=== PATIENT | male | born 1970 | race Caucasian/White ===

== ENCOUNTER 2017-08-17 10:35 | Emergency (ER) | payer OTHER ==
[~2017-08-17] VITALS: Ht 182.9 cm; Wt 67.1 kg
[2017-08-17] MEDS ORDERED: SODIUM CHLORIDE FLUSH 10ML SYR IVF ONE (11:30)
[2017-08-17] MEDS ORDERED: SODIUM CHLORIDE 0.9% 1,000ML IVBOLUS ONE (11:30)
[2017-08-17] MEDS ORDERED: ALBUTEROL/IPRATROPIUM 2.5MG/0.5MG, 3 ML ONE (11:33)
[2017-08-17 11:48] LABS: HEMATOCRIT 46.3 % (39.2-51.8); HEMOGLOBIN 16.2 g/dL (13.7-18.0); WHITE BLOOD COUNT 8.5 x10^3/uL (3.4-10)
[2017-08-17 12:09] LABS: BLOOD UREA NITROGEN 15 mg/dL (7-18)
[2017-08-17 12:11] LABS: IS PT STATUS REG ER OR PRE ER? YES
[2017-08-17 12:50] VITALS: BP 118/77
== END 2017-08-17 12:52 | disposition home or self-care (01) ==
LOC: ED 12:46
DX: B96.89 Other specified bacterial agents as the cause of diseases classified elsewhere (principal); J20.8 Acute bronchitis due to other specified organisms
CPT/HCPCS: 36415; 71010; 80048; 82040; 83880; 84484; 85025; 93005; 96360; 99285; J7030; J7512

== ENCOUNTER 2017-12-03 11:01 | Emergency (ER) | payer OTHER ==
[~2017-12-03] VITALS: Ht 182.9 cm; Wt 71.5 kg
[2017-12-03 11:03] VITALS: BP 135/88
== END 2017-12-03 12:59 | disposition home or self-care (01) ==
LOC: ED 12:55
DX: S62.342A Nondisplaced fracture of base of third metacarpal bone, right hand, initial encounter for closed fracture (principal); F17.200 Nicotine dependence, unspecified, uncomplicated; W18.39XA Other fall on same level, initial encounter; Y93.89 Activity, other specified; Y92.488 Other paved roadways as the place of occurrence of the external cause; Y99.8 Other external cause status
CPT/HCPCS: 29125; 99284

== ENCOUNTER 2018-07-03 12:29 | Emergency (ER) | payer OTHER ==
[~2018-07-03] VITALS: Ht 182.9 cm; Wt 68.2 kg
[2018-07-03 14:36] LABS: BASOPHILS # (AUTO) 0.03 x10^3/uL (0-0.1); BASOPHILS % (AUTO) 0 % (0-1); EOSINOPHILS # (AUTO) 0.01 x10^3/uL (0-0.4); EOSINOPHILS % (AUTO) 0 % (1-7); LYMPHOCYTES # (AUTO) 0.99 x10^3/uL (1-3.4); LYMPHOCYTES % (AUTO) 7 % (22-44); MD NO; MEAN CORPUSCULAR HEMOGLOBIN 33.9 pg (27.5-34.5); MEAN CORPUSCULAR HGB CONC 34.5 g/dL (33.2-36.2); MEAN CORPUSCULAR VOLUME 98.1 fL (81-97); MEAN PLATELET VOLUME 10.2 fL (7.4-10.4); MONOCYTES % (AUTO) 7 % (2-9); NEUTROPHILS # (AUTO) 12.15 x10^3/uL (1.8-6.8); NEUTROPHILS % (AUTO) 86 % (42-75); PLATELET COUNT 110 x10^3/uL (130-400); RED BLOOD COUNT 4.97 x10^6/uL (4.38-5.82); RED CELL DISTRIBUTION WIDTH 12.8 % (9.4-14.8)
[2018-07-03 14:39] LABS: ALBUMIN 3.6 g/dL (3.4-5.0); ANION GAP 9 mmol/L (5-15); CALCIUM 8.9 mg/dL (8.5-10.1); CHLORIDE 111 mmol/L (98-107); CREATININE 0.84 mg/dL (0.7-1.3)
[2018-07-03 14:47] LABS: RAPID INFLUENZA A Negative (Negative); RAPID INFLUENZA B Negative (Negative)
[2018-07-03 15:36] VITALS: BP 133/89
== END 2018-07-03 15:46 | disposition home or self-care (01) ==
LOC: ED 15:09
DX: J43.9 Emphysema, unspecified (principal); F17.200 Nicotine dependence, unspecified, uncomplicated
CPT/HCPCS: 36415; 71046; 80048; 82040; 85025; 87400; 99285; J7512